=== PATIENT | male | born 2000 | race Caucasian/White ===

== ENCOUNTER 2022-11-06 02:06 | Emergency (ER) | payer BC, OTHER ==
[~2022-11-06] VITALS: Ht 188 cm; Wt 84.1 kg
[2022-11-06 03:06] LABS: Basophils # (auto) 0 10 ^3/uL (0-0.2); Basophils % (auto) 0.4 % (0.0-2.0); Eosinophils # (auto) 0 10 ^3/uL (0-0.8); Eosinophils % (auto) 0.4 % (0.0-7.0); Hematocrit 43.8 % (41.0-53.0); Hemoglobin 15.8 g/dL (13.5-17.5); Lymphocytes # (auto) 1.7 10 ^3/uL (0.4-5.4); Lymphocytes % (auto) 15.8 % (10.0-50.0); Mean Corpuscular Hemoglobin 32.5 pg (28.0-32.0); Mean Corpuscular Hgb Conc. 36.2 g/dL (32.0-36.0); Mean Corpuscular Volume 89.7 fL (80.0-100.0); Monocytes # (auto) 0.7 10 ^3/uL (0-1.3); Neutrophils # (auto) 8.5 10 ^3/uL (1.6-8.6); Neutrophils % (auto) 77.4 % (37.0-80.0); Nucleated Red Blood Cells % 0.1 %; Red Blood Cells 4.88 10^6/uL (4.5-5.90); Red Cell Distribution Width 12.5 % (11.8-14.3); White Blood Cell 10.9 10^3/uL (4.4-10.8)
[2022-11-06] MEDS ORDERED: fentaNYL CITRATE 100 MCG/2 ML VL IV ONE (03:15)
[2022-11-06] MEDS ORDERED: ONDANSETRON HCL 4 MG/2 ML VIAL IV ONE (03:15)
[2022-11-06] MEDS ORDERED: ceFAZolin 2 GM/D5W100ml 100 ML IV ONE (03:15)
[2022-11-06] MEDS ORDERED: TETANUS-DIPTH-ACEL PERTUSSIS 0.5ML SYR Tdap IM ONE (03:15)
[2022-11-06] MEDS ORDERED: LACTATED RINGER'S 1,000 ML IV ONE (03:15)
[2022-11-06 03:21] LABS: Albumin 4.2 g/dL (3.4-5.0); BUN/Creatinine Ratio 17.6 (10.0-20.0); Potassium 3.4 mmol/L (3.5-5.1)
[2022-11-06] MEDS ORDERED: cefTRIAXone 1GM/50ML D5W 100 ML IV ONE (03:21)
[2022-11-06 03:23] LABS: Bilirubin, Total 0.7 mg/dL (0.2-1.0); Total Protein 8.2 g/dL (6.4-8.2)
[2022-11-06 03:27] LABS: INR 1.11 (0.9-1.15); Partial Thromboplastin Time 28.3 sec (24.6-33.4)
[2022-11-06] MEDS ORDERED: metroNIDAZOLE 500MG/100ML 100 ML IV ONE (03:30)
[2022-11-06] MEDS ORDERED: CEFTRIAXONE SODIUM 2 GM in D5W 5% 100 ML IV ONE (03:30)
[2022-11-06 03:53] VITALS: BP 148/85
== END 2022-11-06 04:07 | disposition short-term general hospital (02) ==
LOC: ER 02:06
DX: S52.611B Displaced fracture of right ulna styloid process, initial encounter for open fracture type I or II (principal); S62.001A Unspecified fracture of navicular [scaphoid] bone of right wrist, initial encounter for closed fracture; V68.3XXA Unspecified occupant of heavy transport vehicle injured in noncollision transport accident in nontraffic accident, initial encounter; Y93.89 Activity, other specified; Y92.89 Other specified places as the place of occurrence of the external cause; Y99.8 Other external cause status
CPT/HCPCS: 29125; 36415; 73110; 80053; 80320; 85025; 85610; 85730; 90471; 90715; 96365; 96368; 96375; 99285; J0696; J2405; J3010; J3490; J7060